=== PATIENT | male | born 2005 | race African-American/Black ===

== ENCOUNTER 2023-09-11 07:17 | Day surgery (SDC) | payer OTHER ==
[~2023-09-11] VITALS: Ht 170.2 cm; Wt 85.7 kg
[2023-09-11] MEDS ORDERED: LR 1,000 ML IV SCH ×2 (08:10→13:50)
[2023-09-11] MEDS ORDERED: ONDANSETRON 4MG 2ML VIAL As Ordered ONE (08:40)
[2023-09-11] MEDS ORDERED: LIDOCAINE 2% 100MG/5ML SDV (FOR ANES.) As Ordered ONE (08:40)
[2023-09-11] MEDS ORDERED: dexmedeTOMIDine (4MCG/ML)200MCG/50ML BTL (PRECEDEX) As Ordered ONE (08:40)
[2023-09-11] MEDS ORDERED: propofoL 200 MG/20 ML VIAL As Ordered ONE (08:40)
[2023-09-11] MEDS ORDERED: ROCURONIUM BROMIDE 50MG/5ML VIAL As Ordered ONE (08:40)
[2023-09-11] MEDS ORDERED: fentaNYL 250 MCG/5 ML INJECTION As Ordered ONE (08:40)
[2023-09-11] MEDS ORDERED: MIDAZOLAM INJ 2MG/2ML VIAL As Ordered ONE (08:41)
[2023-09-11] MEDS ORDERED: LIDOCAINE 1% SDV 5ML VIAL PN ONE (08:55)
[2023-09-11] MEDS ORDERED: ROPIvacaine 0.5% 30ML VIAL PN ONE (08:55)
[2023-09-11] MEDS ORDERED: EPINEPHrine INJ 1 MG/ML 1ML AMP PN ONE (08:55)
[2023-09-11] MEDS: MIDAZOLAM INJ 2MG/2ML VIAL IV PRN (09:11)
[2023-09-11] MEDS: fentaNYL 100 MCG/2 ML INJECTION IV PRN (09:11)
[2023-09-11] MEDS: TRANEXAMIC ACID 100 MG/ML 10ML VIAL As Ordered ONE (09:28)
[2023-09-11] MEDS: ceFAZolin SOD 2 GM in IV 1 EA IV ONE (10:07)
[2023-09-11] MEDS: TRANEXAMIC ACID 100 MG/ML 10ML VIAL IV ONE (10:14)
[2023-09-11] MEDS ORDERED: ACETAMINOPHEN 1000MG 100ML IV BAG As Ordered ONE (10:24)
[2023-09-11] MEDS ORDERED: SUGAMMADEX SODIUM 500 MG/5 ML VIAL (BRIDION) As Ordered ONE (10:24)
[2023-09-11] MEDS ORDERED: KETOROLAC 60MG 2ML VIAL As Ordered ONE (10:24)
[2023-09-11] MEDS ORDERED: METOCLOPRAMIDE INJ 10MG/2ML VIAL As Ordered ONE (11:13)
[2023-09-11] MEDS ORDERED: HYDROmorphone HCL 2MG/ML 1ML VIAL As Ordered ONE (11:39)
[2023-09-11] MEDS: EPINEPHrine 1MG/ML INJ 30ML MD-VIAL As Ordered ONE (12:40)
[2023-09-11] MEDS ORDERED: fentaNYL 100 MCG/2 ML INJECTION IV PRN (13:50)
[2023-09-11] MEDS: ONDANSETRON 4MG 2ML VIAL IV PRN (15:05)
[2023-09-11 17:16] VITALS: BP 133/70; TEMP 97.6; O2SAT 99
== END 2023-09-11 17:17 | disposition home or self-care (01) ==
LOC: M SDC 07:17
PROVIDERS: ATTEND Orthopaedic Surgery
DX: S83.511A Sprain of anterior cruciate ligament of right knee, initial encounter (principal); X50.0XXA Overexertion from strenuous movement or load, initial encounter; Y93.79 Activity, other specified sports and athletics; Y93.9 Activity, unspecified
CPT/HCPCS: 29888; 73560; C1713; J0131; J0171; J0665; J0690; J1100; J1170; J1885; J2250; J2405; J2765; J3010